=== PATIENT | female | born 1950 | race Two or more races ===

== ENCOUNTER → 2017-08-27 | Outpatient (CLI) | payer BC ==
--- NOTE | 2017-08-30 13:48 | RAD ---
DATE: 08/27/2017 EXAM: MAMMO MANUELA SCREENING BILATERAL HISTORY: Routine screening COMPARISON: 28/10/2015 This study was interpreted with the benefit of Computerized Aided Detection (CAD). The breast parenchyma shows scattered fibroglandular densities. Breast parenchyma level B. FINDINGS: 2-D and 3-D tomosynthesis imaging was performed in CC and MLO projections. There are several small smooth nodules in both breasts, better demonstrated on the current tomosynthesis images. No new or enlarging breast densities are seen. Benign type calcifications are present. No suspicious microcalcifications have developed. Benign-appearing lymph nodes are partially visualized in the axillary regions. IMPRESSION: Stable mammograms without evidence of malignancy. BI-RADS CATEGORY: 2 BENIGN FINDING(S) RECOMMENDED FOLLOW-UP: 12M 12 MONTH FOLLOW-UP PQRS compliance statement: Patient information was entered into a reminder system with a target due date for the next mammogram. Mammography is a sensitive method for finding small breast cancers, but it does not detect them all and is not a substitute for careful clinical examination. A negative mammogram does not negate a clinically suspicious finding and should not result in delay in biopsying a clinically suspicious abnormality. "Our facility is accredited by the [employer] Mammography [employer]."
== END | disposition home or self-care (01) ==
LOC: MAMMO 08:10
PROVIDERS: ATTEND Family Medicine
DX: Z12.31 Encounter for screening mammogram for malignant neoplasm of breast (principal)
CPT/HCPCS: 77063; 77067

== ENCOUNTER → 2018-12-08 | Outpatient (CLI) | payer BC ==
--- NOTE | 2018-12-09 12:05 | RAD ---
DATE: December 08, 2018 EXAM: MAMMO MANUELA SCREENING BILATERAL HISTORY: Screening study. COMPARISON: 2015 and 2017 This study was interpreted with the benefit of Computerized Aided Detection (CAD). 2-D digital mammographic views of both breasts were performed in the CC and MLO projections. 3-D digital tomosynthesis images of both breasts were performed in the CC and MLO projections and reviewed on a computer workstation. FINDINGS: Breast Density: FATTY The breast parenchyma is primarily fatty replaced. Breast parenchyma level density A.. There are no dominant suspicious masses, suspicious microcalcifications or evidence of architectural distortion. Small bilateral benign-appearing breast nodules are seen. IMPRESSION: No mammographic indicators for malignancy. BI-RADS CATEGORY: 2 BENIGN FINDING RECOMMENDED FOLLOW-UP: 12M 12 MONTH FOLLOW-UP PQRS compliance statement: Patient information was entered into a reminder system with a target due date December 10, 2019 for the next mammogram. Mammography is a sensitive method for finding small breast cancers, but it does not detect them all and is not a substitute for careful clinical examination. A negative mammogram does not negate a clinically suspicious finding and should not result in delay in biopsying a clinically suspicious abnormality. "Our facility is accredited by the [employer] Mammography [employer]." The patient's breast density may affect the ability of mammography to detect breast cancer. There are 4 categories of breast density, A, B, C and D. Breast density A means that most of the breast tissue is replaced with adipose tissue and therefore is not dense. Breast density B means that the breast tissue is mildly dense and scattered. Breast density C means that the breast tissue is heterogeneously dense. Breast density D means that the breast tissue is very dense. Breast densities especially C and D may decrease the sensitivity of mammography to detect breast cancer. Therefore, the patient may benefit from 3-D breast mammography (3D breast tomography) as a part of their screening mammogram. Insurance may or may not pay for this additional imaging. The patient's breast density based on today's mammogram is category A.
== END | disposition home or self-care (01) ==
LOC: MAMMO 08:24
PROVIDERS: ATTEND Family Medicine
DX: Z13.21 Encounter for screening for nutritional disorder (principal); N63.20 Unspecified lump in the left breast, unspecified quadrant; N63.10 Unspecified lump in the right breast, unspecified quadrant
CPT/HCPCS: 77063; 77067

== ENCOUNTER → 2020-02-05 | Outpatient (CLI) | payer BC ==
--- NOTE | 2020-02-06 08:24 | RAD ---
BILATERAL SCREENING MAMMOGRAM, 3-D History: Routine screening. Comparison: 12/08/2018, 08/27/2017 and 09/03/2015, 04/04/2013 09/02/2011. Technique: MLO and CC digital tomosynthesis (3D) images obtained. Radiologist reviewed these images on dedicated workstation. Findings: Breast Tissue Density A : The breasts are almost entirely fatty. Small mass involving the left 2.4 cm and developed since 09/03/2015. On the left measuring 0.7 cm in diameter 3.47 no suspicious calcifications. IMPRESSION: Small masses involving the left anterior breast have developed or increase in size since 08/27/2017. Ultrasound recommended. Spot compression may be needed. BI-RADS Category 0: Incomplete: Need additional imaging evaluation. The images were reviewed with computer-aided detection. Patient information is entered into reminder system with a target due date for the next screening mammogram. Mammography is the most sensitive method for finding small breast cancers, but it does not detect them all and is not a substitute for careful clinical examination. A negative mammogram does not negate a clinically suspicious finding and should not result in delay in biopsying a clinically suspicious abnormality. "Our facility is accredited by the [employer] Mammography Program." Electronically signed by: Davin Jiménez MD (02/06/2020 8:21 AM) [id number]
== END | disposition home or self-care (01) ==
LOC: MAMMO 15:03
PROVIDERS: ATTEND Family Medicine
DX: Z12.31 Encounter for screening mammogram for malignant neoplasm of breast (principal); N64.89 Other specified disorders of breast
CPT/HCPCS: 77063; 77067

== ENCOUNTER → 2020-02-15 | Outpatient (CLI) | payer SELFPAY ==
--- NOTE | 2020-02-15 15:08 | RAD ---
DATE: 02/15/2020 1:55 PM EXAM: DIGITAL DIAGNOSTIC LT, BREAST LEFT HISTORY: Call back left breast masses COMPARISON: February 05, 2020 Left breast spot compression views. Ultrasound was also performed. This study was interpreted with the benefit of Computerized Aided Detection (CAD). FINDINGS: Breast Density: FATTY The Breast Parenchyma is primarily fatty replaced. Breast parenchyma level density A. Left breast mammogram: Persistent well-circumscribed lobulated mass within the left medial breast measures 0.6 x 0.5 cm. Additional mass within the retroareolar region measures 0.3 cm. Left breast ultrasound: Well-circumscribed hypoechoic mass within the left breast 8:00 position 4 cm from the nipple measures 0.6 x 0.4 cm corresponding with mammographic finding. Additional hypoechoic lesion superior to this region measures 0.2 x 0.2 cm. This lesion most likely corresponds with mammographic finding. No pathologic lymphadenopathy within the left adnexa. IMPRESSION: Left breast hypoechoic lesions, most likely complicated cysts. Recommend 6 month follow-up mammogram and ultrasound. BI-RADS CATEGORY: 3 PROBABLY BENIGN FINDING(S)-SHORT INTERVAL FOLLOW-UP SUGGESTED RECOMMENDED FOLLOW-UP: 6M 6 MONTH FOLLOW-UP mammogram and ultrasound. PQRS compliance statement: Patient information was entered into a reminder system with a target due date 6 months left breast mammogram. Mammography is a sensitive method for finding small breast cancers, but it does not detect them all and is not a substitute for careful clinical examination. A negative mammogram does not negate a clinically suspicious finding and should not result in delay in biopsying a clinically suspicious abnormality. "Our facility is accredited by the [employer] Mammography Program."
== END ==
LOC: US 13:34
PROVIDERS: ATTEND Family Medicine
DX: R92.8 Other abnormal and inconclusive findings on diagnostic imaging of breast (principal); N63.20 Unspecified lump in the left breast, unspecified quadrant
CPT/HCPCS: 76641; 77065

== ENCOUNTER → 2021-02-28 | Outpatient (CLI) | payer OTHER ==
--- NOTE | 2021-02-28 16:42 | RAD ---
EXAM: 3 views of the right ankle DATE: 02/28/2021 4:31 PM INDICATION: Reason: LATERAL RIGHT ANKLE PAIN / Spl. Instructions: / History: COMPARISON: No Prior FINDINGS: Oblique fracture of the distal fibular diametaphysis. Trace periosteal reaction suggesting subacute/h ealing fracture. Ankle mortise is congruent. Talar dome is intact. Talonavicular DJD. Small plantar a nd posterior calcaneal enthesophytes. Soft tissue swelling about the right ankle. IMPRESSION: 1. Oblique fracture distal fibular diametaphysis. Associated periosteal reaction suggesting subacute fracture/signs of healing. 2. Midfoot degenerative changes are seen. Electronically signed by: Jose Gill MD (02/28/2021 4:40 PM) [facility]
== END ==
LOC: RAD 02-26 16:08
PROVIDERS: ATTEND Orthopaedic Surgery
DX: S82.401A Unspecified fracture of shaft of right fibula, initial encounter for closed fracture (principal); M19.071 Primary osteoarthritis, right ankle and foot; M79.89 Other specified soft tissue disorders; X58.XXXA Exposure to other specified factors, initial encounter; Y93.89 Activity, other specified; Y92.89 Other specified places as the place of occurrence of the external cause; Y99.8 Other external cause status
CPT/HCPCS: 73610

== ENCOUNTER → 2021-03-13 | Outpatient (CLI) | payer OTHER ==
--- NOTE | 2021-03-13 16:46 | RAD ---
EXAMINATION: Right tibia/fibula and right ankle radiographs. VIEWS: 2 views of the right tibia/fibula and 3 views of the right ankle COMPARISON: 02/28/2021 INDICATION:70 years, Female, follow-up fracture. FINDINGS/ IMPRESSION: Redemonstrated mild dorsally displaced distal fibular fracture with unchanged fracture alignment. Min imal adjacent callus formation consistent with healing process. Ankle mortise and talar dome are inta ct. Improving lateral ankle soft tissue swelling. No ankle joint effusion. Electronically signed by: Tamra Rich MD (03/13/2021 4:44 PM) [facility]
--- NOTE | 2021-03-13 16:46 | RAD ---
EXAMINATION: Right tibia/fibula and right ankle radiographs. VIEWS: 2 views of the right tibia/fibula and 3 views of the right ankle COMPARISON: 02/28/2021 INDICATION:70 years, Female, follow-up fracture. FINDINGS/ IMPRESSION: Redemonstrated mild dorsally displaced distal fibular fracture with unchanged fracture alignment. Min imal adjacent callus formation consistent with healing process. Ankle mortise and talar dome are inta ct. Improving lateral ankle soft tissue swelling. No ankle joint effusion. Electronically signed by: Tamra Rich MD (03/13/2021 4:44 PM) [facility]
== END ==
LOC: RAD 15:55
PROVIDERS: ATTEND Orthopaedic Surgery
DX: S82.831D Other fracture of upper and lower end of right fibula, subsequent encounter for closed fracture with routine healing (principal); L84 Corns and callosities; X58.XXXD Exposure to other specified factors, subsequent encounter
CPT/HCPCS: 73590; 73610

== ENCOUNTER → 2021-04-29 | Outpatient (CLI) | payer OTHER ==
--- NOTE | 2021-04-29 20:42 | RAD ---
EXAM: AP and lateral views right tibia/fibula AP, oblique and lateral views of the right ankle DATE: 04/29/2021 6:53 PM INDICATION: Fracture 02/2021, follow up COMPARISON: No Prior FINDINGS/ IMPRESSION: 1. Progressively healing oblique distal fibular fracture in stable alignment. 2. Ankle mortise is congruent. Talar dome is intact. 3. Midfoot degenerative changes are seen. Calcaneal enthesophytes are seen. 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 Electronically signed by: Jose Gill MD (04/29/2021 8:39 PM) [facility]
== END ==
LOC: RAD 18:44
PROVIDERS: ATTEND Orthopaedic Surgery
DX: S82.401D Unspecified fracture of shaft of right fibula, subsequent encounter for closed fracture with routine healing (principal); X58.XXXD Exposure to other specified factors, subsequent encounter; M19.071 Primary osteoarthritis, right ankle and foot; M77.31 Calcaneal spur, right foot; M17.11 Unilateral primary osteoarthritis, right knee; M25.78 Osteophyte, vertebrae
CPT/HCPCS: 73590; 73610